=== PATIENT | female | born 1955 | race Caucasian/White ===

== ENCOUNTER 2018-08-11 13:26 | Inpatient (IN) ==
[2018-08-11] MEDS ORDERED: ONDANSETRON 4 MG/2 ML VIAL IV STA (14:06)
[2018-08-11] MEDS ORDERED: SODIUM CHLORIDE 0.9% 1,000 ML IV STA (14:06)
[2018-08-11 14:35] LABS: Basophils # 0.1 10*3/uL (0.0-0.2); Basophils % 0.9 % (0.0-0.8); Eosinophils # 0.1 10*3/uL (0.0-0.87); Eosinophils % 0.5 % (0.00-10.9); Hematocrit 50.8 VOL% (35.7-47.0); Hemoglobin 16.1 GM/DL (12.0-16.0); Immature Granulocytes % 1.6 %; Immature Granulocytes Absolute 0.18 #; Lymphocytes # 1.5 10*3/uL (1.4-4.0); Lymphocytes % 13.3 % (21.3-54.2); Mean Corpuscular HGB Conc 31.7 GM/DL (32-36); Mean Platelet Volume 9.9 FL (9.6-12.0); Monocytes % 4.9 % (1.7-12.7); Neutrophils % 78.8 % (38.7-73.9); Platelet Count 295 T/CUMM (130-400); Red Blood Count 4.98 MC/CUMM (3.8-5.5); Red Cell Distribution Width 16.2 % (9.3-17.3); White Blood Count 11.6 T/CUMM (4-12)
[2018-08-11 14:54] LABS: Alanine Aminotransferase 11 U/L (13-56); Albumin 3.5 G/DL (3.4-5.0); Alkaline Phosphatase 114 U/L (45-117); Amylase 13 U/L (25-115); Aspartate Amino Transferase 19 U/L (0-37); Blood Urea Nitrogen 9 MG/DL (7-18); Calcium 8.7 MG/DL (8.5-10.1); Glucose 104 MG/DL (74-106); Osmolality,Calculated 271.8 MOS/KG (273-304); Total Protein 7.5 G/DL (6.4-8.3)
[2018-08-11 15:49] LABS: Apearance,Urine Slightly Hazy (Clear); Bacteria,Urine Moderate /HPF (Few); Bilirubin,Urine Negative (Negative); Blood, Urine Large mg/dL (Negative); Glucose,Urine (UA) Negative (Negative); Ketones,Urine 5 mg/dL (Negative); Mucus,Urine Many /LPF (Occasional); Nitrite,Urine Positive (Negative); Protein,Urine 30 MG/DL; RBC,Urine 340 /HPF (0-4); Squamous Epithelial Cell,Urine Occasional /HPF (0-10); Urine Color Amber (Yellow); Urine Specific Gravity 1.023 (1.001-1.035); WBC,Urine 18 /HPF (0-6)
[2018-08-11] MEDS ORDERED: CIPROFLOXACIN INJ 400 MG in PREMIX 1 EACH IV STA (16:21)
[2018-08-11] MEDS ORDERED: ACETAMINOPHEN 325 MG TABLET PO PRN (18:27)
[2018-08-11] MEDS: ONDANSETRON 4 MG/2 ML VIAL IV PRN (19:21)
[2018-08-11] MEDS: MORPHINE 4 MG/1 ML VIAL IV PRN (19:22)
[2018-08-11] MEDS: SODIUM CHLORIDE 0.9% 1,000 ML IV SCH (19:24)
[2018-08-11] MEDS: ENOXAPARIN 40 MG/0.4 ML SYRINGE SUBCUT SCH (19:25)
[2018-08-11] MEDS: GABAPENTIN 300 MG CAPSULE PO SCH (22:09)
[2018-08-12] MEDS: MORPHINE 4 MG/1 ML VIAL IV PRN ×2 (01:06→14:04)
[2018-08-12 05:13] LABS: Basophils # 0.1 10*3/uL (0.0-0.2); Basophils % 1.1 % (0.0-0.8); Eosinophils # 0.1 10*3/uL (0.0-0.87); Eosinophils % 1.4 % (0.00-10.9); Hematocrit 45.8 VOL% (35.7-47.0); Hemoglobin 14.3 GM/DL (12.0-16.0); Immature Granulocytes % 1.8 %; Immature Granulocytes Absolute 0.17 #; Lymphocytes # 1.8 10*3/uL (1.4-4.0); Lymphocytes % 19.2 % (21.3-54.2); Mean Corpuscular HGB Conc 31.2 GM/DL (32-36); Mean Corpuscular Volume 104.3 FL (87-102); Monocytes % 4.7 % (1.7-12.7); Neutrophils % 71.8 % (38.7-73.9); Platelet Count 261 T/CUMM (130-400); Red Blood Count 4.39 MC/CUMM (3.8-5.5); Red Cell Distribution Width 16.3 % (9.3-17.3); White Blood Count 9.4 T/CUMM (4-12)
[2018-08-12 05:53] LABS: Calcium 8.3 MG/DL (8.5-10.1); Osmolality,Calculated 272.7 MOS/KG (273-304); Risk Ratio 3.93; VLDL CHOLESTEROL 26.8 MG/DL
[2018-08-12] MEDS: CIPROFLOXACIN INJ 400 MG in PREMIX 1 EACH IV SCH ×2 (06:17→17:12)
[2018-08-12] MEDS: SODIUM CHLORIDE 0.9% 1,000 ML IV SCH ×2 (06:18→07:50)
[2018-08-12] MEDS: GABAPENTIN 300 MG CAPSULE PO SCH ×3 (09:57→20:54)
[2018-08-12] MEDS: PANTOPRAZOLE 40 MG TABLET PO SCH (09:58)
[2018-08-12] MEDS: ZINC OXIDE PASTE 113 GM TUBE TOP SCH ×2 (17:08→20:54)
[2018-08-12] MEDS ORDERED: LEVOTHYROXINE 100 MCG VIAL IV ONE (17:14)
[2018-08-12] MEDS: ENOXAPARIN 40 MG/0.4 ML SYRINGE SUBCUT SCH (18:12)
[2018-08-13] MEDS: MORPHINE 4 MG/1 ML VIAL IV PRN ×2 (03:33→13:50)
[2018-08-13] MEDS: SODIUM CHLORIDE 0.9% 1,000 ML IV SCH ×4 (03:35→23:12)
[2018-08-13] MEDS: CIPROFLOXACIN INJ 400 MG in PREMIX 1 EACH IV SCH ×2 (05:23→17:54)
[2018-08-13 05:52] LABS: Basophils # 0.1 10*3/uL (0.0-0.2); Basophils % 0.8 % (0.0-0.8); Eosinophils # 0.1 10*3/uL (0.0-0.87); Eosinophils % 1.2 % (0.00-10.9); Hematocrit 45.3 VOL% (35.7-47.0); Immature Granulocytes % 1.8 %; Immature Granulocytes Absolute 0.15 #; Lymphocytes # 1.6 10*3/uL (1.4-4.0); Lymphocytes % 19.3 % (21.3-54.2); Mean Corpuscular HGB Conc 30.9 GM/DL (32-36); Mean Corpuscular Volume 105.1 FL (87-102); Mean Platelet Volume 10.1 FL (9.6-12.0); Monocytes % 4.7 % (1.7-12.7); Neutrophils % 72.2 % (38.7-73.9); Platelet Count 267 T/CUMM (130-400); Red Blood Count 4.31 MC/CUMM (3.8-5.5); Red Cell Distribution Width 16.2 % (9.3-17.3); White Blood Count 8.4 T/CUMM (4-12)
[2018-08-13 06:21] LABS: Calcium 8.4 MG/DL (8.5-10.1)
[2018-08-13] MEDS: LEVOTHYROXINE 200 MCG TABLET PO SCH (06:25)
[2018-08-13] MEDS ORDERED: LEVOTHYROXINE 150 MCG TABLET PO SCH (06:30)
[2018-08-13] MEDS: ZINC OXIDE PASTE 113 GM TUBE TOP SCH ×2 (09:08→21:25)
[2018-08-13] MEDS: PANTOPRAZOLE 40 MG TABLET PO SCH (09:08)
[2018-08-13] MEDS: GABAPENTIN 300 MG CAPSULE PO SCH ×3 (09:08→21:26)
[2018-08-13 10:57] LABS: ABG Base Excess 2.1 MMOL/L (-2.5-2.5); ABG HCO3 26.2 MMOL/L (20-26); ABG Oxygen Saturation 96.9 % (95-100); ABG PCO2 63.4 MM HG (35-48); ABG PH 7.295 (7.35-7.45); ABG PO2 88.3 MM HG (80-95); ABG TCO2 27.1 MMOL/L (23-27); Allen Test Positive
[2018-08-13] MEDS: ENOXAPARIN 40 MG/0.4 ML SYRINGE SUBCUT SCH (17:54)
[2018-08-14] MEDS: MORPHINE 4 MG/1 ML VIAL IV PRN ×3 (01:32→19:18)
[2018-08-14 04:48] LABS: Basophils # 0.1 10*3/uL (0.0-0.2); Basophils % 1.1 % (0.0-0.8); Eosinophils # 0.1 10*3/uL (0.0-0.87); Eosinophils % 1.1 % (0.00-10.9); Hematocrit 42.7 VOL% (35.7-47.0); Hemoglobin 12.9 GM/DL (12.0-16.0); Immature Granulocytes Absolute 0.17 #; Lymphocytes # 1.7 10*3/uL (1.4-4.0); Lymphocytes % 20.1 % (21.3-54.2); Mean Corpuscular HGB Conc 30.2 GM/DL (32-36); Mean Corpuscular Volume 106.8 FL (87-102); Mean Platelet Volume 9.7 FL (9.6-12.0); Monocytes % 5.6 % (1.7-12.7); Neutrophils % 70.1 % (38.7-73.9); Platelet Count 219 T/CUMM (130-400); Red Cell Distribution Width 16.1 % (9.3-17.3); White Blood Count 8.5 T/CUMM (4-12)
[2018-08-14 05:17] LABS: Calcium 8.1 MG/DL (8.5-10.1); Osmolality,Calculated 271.8 MOS/KG (273-304)
[2018-08-14] MEDS: LEVOTHYROXINE 200 MCG TABLET PO SCH (06:12)
[2018-08-14] MEDS: CIPROFLOXACIN INJ 400 MG in PREMIX 1 EACH IV SCH (06:14)
[2018-08-14] MEDS: PANTOPRAZOLE 40 MG TABLET PO SCH (09:00)
[2018-08-14] MEDS: GABAPENTIN 300 MG CAPSULE PO SCH ×3 (09:00→20:58)
[2018-08-14] MEDS: ZINC OXIDE PASTE 113 GM TUBE TOP SCH ×2 (09:00→20:56)
[2018-08-14] MEDS ORDERED: CYANOCOBALAMIN 1000 MCG/1 ML VIAL IM ONE (10:03)
[2018-08-14] MEDS: MONTELUKAST 10 MG TABLET PO SCH (11:30)
[2018-08-14] MEDS: FOLIC ACID 1 MG TABLET PO SCH ×2 (11:30→20:58)
[2018-08-14] MEDS: SODIUM CHLORIDE 0.9% 1,000 ML IV SCH (16:34)
[2018-08-14] MEDS: ENOXAPARIN 40 MG/0.4 ML SYRINGE SUBCUT SCH (18:19)
[2018-08-14] MEDS: CIPROFLOXACIN 250 MG TABLET PO SCH (20:58)
[2018-08-15] MEDS: SODIUM CHLORIDE 0.9% 1,000 ML IV SCH ×2 (02:41→17:43)
[2018-08-15] MEDS: LEVOTHYROXINE 200 MCG TABLET PO SCH (07:10)
[2018-08-15] MEDS ORDERED: CYANOCOBALAMIN 1000 MCG/1 ML VIAL IM SCH (09:00)
[2018-08-15] MEDS: MONTELUKAST 10 MG TABLET PO SCH (09:03)
[2018-08-15] MEDS: GABAPENTIN 300 MG CAPSULE PO SCH ×3 (09:03→20:52)
[2018-08-15] MEDS: FOLIC ACID 1 MG TABLET PO SCH ×2 (09:03→20:52)
[2018-08-15] MEDS: PANTOPRAZOLE 40 MG TABLET PO SCH (09:03)
[2018-08-15] MEDS: CIPROFLOXACIN 250 MG TABLET PO SCH ×2 (09:03→20:52)
[2018-08-15] MEDS: MORPHINE 4 MG/1 ML VIAL IV PRN ×3 (09:04→21:10)
[2018-08-15] MEDS: ZINC OXIDE PASTE 113 GM TUBE TOP SCH ×2 (10:00→20:52)
[2018-08-15] MEDS: ENOXAPARIN 40 MG/0.4 ML SYRINGE SUBCUT SCH (18:43)
[2018-08-16] MEDS: MORPHINE 4 MG/1 ML VIAL IV PRN ×5 (03:06→20:45)
[2018-08-16] MEDS: LEVOTHYROXINE 200 MCG TABLET PO SCH (06:37)
[2018-08-16] MEDS: SODIUM CHLORIDE 0.9% 1,000 ML IV SCH ×2 (06:38→20:48)
[2018-08-16] MEDS: GABAPENTIN 300 MG CAPSULE PO SCH ×3 (08:45→20:45)
[2018-08-16] MEDS: PANTOPRAZOLE 40 MG TABLET PO SCH (08:45)
[2018-08-16] MEDS: CIPROFLOXACIN 250 MG TABLET PO SCH ×2 (08:45→20:45)
[2018-08-16] MEDS: ZINC OXIDE PASTE 113 GM TUBE TOP SCH ×2 (08:45→20:48)
[2018-08-16] MEDS: FOLIC ACID 1 MG TABLET PO SCH ×2 (08:45→20:45)
[2018-08-16] MEDS: MONTELUKAST 10 MG TABLET PO SCH (08:45)
[2018-08-16] MEDS: ENOXAPARIN 40 MG/0.4 ML SYRINGE SUBCUT SCH (18:21)
[2018-08-17] MEDS: MORPHINE 4 MG/1 ML VIAL IV PRN ×3 (05:12→20:27)
[2018-08-17] MEDS: LEVOTHYROXINE 200 MCG TABLET PO SCH (06:03)
[2018-08-17] MEDS: SODIUM CHLORIDE 0.9% 1,000 ML IV SCH ×2 (07:55→22:20)
[2018-08-17] MEDS: PANTOPRAZOLE 40 MG TABLET PO SCH (08:52)
[2018-08-17] MEDS: FOLIC ACID 1 MG TABLET PO SCH ×2 (08:52→20:27)
[2018-08-17] MEDS: GABAPENTIN 300 MG CAPSULE PO SCH ×3 (08:52→20:27)
[2018-08-17] MEDS: CIPROFLOXACIN 250 MG TABLET PO SCH ×2 (08:52→20:27)
[2018-08-17] MEDS: MONTELUKAST 10 MG TABLET PO SCH (08:52)
[2018-08-17] MEDS: ZINC OXIDE PASTE 113 GM TUBE TOP SCH ×2 (09:17→22:29)
[2018-08-17] MEDS: ENOXAPARIN 40 MG/0.4 ML SYRINGE SUBCUT SCH (18:58)
[2018-08-18] MEDS: MORPHINE 4 MG/1 ML VIAL IV PRN ×4 (04:34→20:28)
[2018-08-18] MEDS: LEVOTHYROXINE 200 MCG TABLET PO SCH (06:20)
[2018-08-18] MEDS: FOLIC ACID 1 MG TABLET PO SCH ×2 (08:25→20:27)
[2018-08-18] MEDS: CIPROFLOXACIN 250 MG TABLET PO SCH ×2 (08:26→20:27)
[2018-08-18] MEDS: MONTELUKAST 10 MG TABLET PO SCH (08:26)
[2018-08-18] MEDS: PANTOPRAZOLE 40 MG TABLET PO SCH (08:26)
[2018-08-18] MEDS: GABAPENTIN 300 MG CAPSULE PO SCH ×3 (08:26→20:27)
[2018-08-18] MEDS: ZINC OXIDE PASTE 113 GM TUBE TOP SCH ×2 (08:27→20:27)
[2018-08-18] MEDS: SODIUM CHLORIDE 0.9% 1,000 ML IV SCH (10:52)
[2018-08-18] MEDS: ENOXAPARIN 40 MG/0.4 ML SYRINGE SUBCUT SCH (18:09)
[2018-08-18] MEDS: NYSTATIN POWDER 15 GM BOTTLE TOP SCH (22:44)
[2018-08-19] MEDS: SODIUM CHLORIDE 0.9% 1,000 ML IV SCH (00:27)
[2018-08-19] MEDS: MORPHINE 4 MG/1 ML VIAL IV PRN (00:36)
[2018-08-19] MEDS ORDERED: HYDROmorphone 2 MG/1 ML VIAL IV ONE (03:14)
[2018-08-19] MEDS: HYDROmorphone 2 MG/1 ML VIAL IV PRN ×3 (06:38→21:38)
[2018-08-19] MEDS: LEVOTHYROXINE 200 MCG TABLET PO SCH (06:41)
[2018-08-19] MEDS: FOLIC ACID 1 MG TABLET PO SCH ×2 (08:08→21:29)
[2018-08-19] MEDS: PANTOPRAZOLE 40 MG TABLET PO SCH (08:09)
[2018-08-19] MEDS: MONTELUKAST 10 MG TABLET PO SCH (08:09)
[2018-08-19] MEDS: GABAPENTIN 300 MG CAPSULE PO SCH ×3 (08:09→21:29)
[2018-08-19] MEDS: CIPROFLOXACIN 250 MG TABLET PO SCH ×2 (08:09→21:29)
[2018-08-19] MEDS: ZINC OXIDE PASTE 113 GM TUBE TOP SCH ×2 (08:10→21:29)
[2018-08-19] MEDS: NYSTATIN POWDER 15 GM BOTTLE TOP SCH ×2 (08:11→21:29)
[2018-08-19] MEDS: ONDANSETRON 4 MG/2 ML VIAL IV PRN (09:44)
[2018-08-19] MEDS ORDERED: PROMETHAZINE 25 MG/1 ML VIAL IM PRN (10:48)
[2018-08-19] MEDS: CYANOCOBALAMIN 500 MCG TABLET PO SCH (12:53)
[2018-08-19] MEDS: ENOXAPARIN 40 MG/0.4 ML SYRINGE SUBCUT SCH (17:38)
[2018-08-20] MEDS: HYDROmorphone 2 MG/1 ML VIAL IV PRN (02:20)
[2018-08-20 04:53] LABS: Basophils # 0.1 10*3/uL (0.0-0.2); Basophils % 0.9 % (0.0-0.8); Eosinophils # 0.1 10*3/uL (0.0-0.87); Eosinophils % 1.4 % (0.00-10.9); Hemoglobin 12.6 GM/DL (12.0-16.0); Immature Granulocytes % 1.5 %; Immature Granulocytes Absolute 0.12 #; Lymphocytes # 1.2 10*3/uL (1.4-4.0); Lymphocytes % 15.5 % (21.3-54.2); Mean Corpuscular HGB Conc 30.7 GM/DL (32-36); Mean Corpuscular Volume 105.1 FL (87-102); Mean Platelet Volume 9.7 FL (9.6-12.0); Neutrophils % 73.7 % (38.7-73.9); Platelet Count 199 T/CUMM (130-400); Red Cell Distribution Width 15.9 % (9.3-17.3); White Blood Count 7.8 T/CUMM (4-12)
[2018-08-20 05:13] LABS: Calcium 8.3 MG/DL (8.5-10.1); Osmolality,Calculated 272.7 MOS/KG (273-304)
[2018-08-20] MEDS: LEVOTHYROXINE 200 MCG TABLET PO SCH (07:32)
[2018-08-20] MEDS: MONTELUKAST 10 MG TABLET PO SCH (09:27)
[2018-08-20] MEDS: CIPROFLOXACIN 250 MG TABLET PO SCH ×2 (09:27→21:48)
[2018-08-20] MEDS: PANTOPRAZOLE 40 MG TABLET PO SCH (09:27)
[2018-08-20] MEDS: FOLIC ACID 1 MG TABLET PO SCH ×2 (09:28→21:48)
[2018-08-20] MEDS: GABAPENTIN 300 MG CAPSULE PO SCH ×3 (09:28→21:48)
[2018-08-20] MEDS: LIDOCAINE 5% PATCH TRANSDERM SCH (09:31)
[2018-08-20] MEDS: CYANOCOBALAMIN 500 MCG TABLET PO SCH (10:00)
[2018-08-20] MEDS: ZINC OXIDE PASTE 113 GM TUBE TOP SCH ×2 (10:00→21:48)
[2018-08-20] MEDS: NYSTATIN POWDER 15 GM BOTTLE TOP SCH ×2 (10:00→21:48)
[2018-08-20] MEDS: LIOTHYRONINE 25 MCG TABLET PO SCH (16:00)
[2018-08-20] MEDS: ENOXAPARIN 40 MG/0.4 ML SYRINGE SUBCUT SCH (18:06)
[2018-08-21 05:13] LABS: Basophils # 0.1 10*3/uL (0.0-0.2); Eosinophils # 0.1 10*3/uL (0.0-0.87); Eosinophils % 1.4 % (0.00-10.9); Hematocrit 39.8 VOL% (35.7-47.0); Hemoglobin 12.3 GM/DL (12.0-16.0); Immature Granulocytes % 1.3 %; Immature Granulocytes Absolute 0.09 #; Lymphocytes # 1.3 10*3/uL (1.4-4.0); Lymphocytes % 18.1 % (21.3-54.2); Mean Corpuscular HGB Conc 30.9 GM/DL (32-36); Mean Corpuscular Volume 104.5 FL (87-102); Mean Platelet Volume 10.3 FL (9.6-12.0); Neutrophils % 71.2 % (38.7-73.9); Platelet Count 188 T/CUMM (130-400); Red Blood Count 3.81 MC/CUMM (3.8-5.5); Red Cell Distribution Width 15.8 % (9.3-17.3)
[2018-08-21 05:33] LABS: Calcium 8.4 MG/DL (8.5-10.1); Osmolality,Calculated 275.5 MOS/KG (273-304)
[2018-08-21] MEDS: LEVOTHYROXINE 200 MCG TABLET PO SCH (06:32)
[2018-08-21] MEDS: LIOTHYRONINE 25 MCG TABLET PO SCH (06:32)
[2018-08-21] MEDS: LIDOCAINE 5% PATCH TRANSDERM SCH (06:32)
[2018-08-21] MEDS: FOLIC ACID 1 MG TABLET PO SCH (10:50)
[2018-08-21] MEDS: GABAPENTIN 300 MG CAPSULE PO SCH (10:50)
[2018-08-21] MEDS: PANTOPRAZOLE 40 MG TABLET PO SCH (10:50)
[2018-08-21] MEDS: CYANOCOBALAMIN 500 MCG TABLET PO SCH (10:51)
[2018-08-21] MEDS: CIPROFLOXACIN 250 MG TABLET PO SCH (10:51)
[2018-08-21] MEDS: MONTELUKAST 10 MG TABLET PO SCH (10:52)
[2018-08-21] MEDS: ZINC OXIDE PASTE 113 GM TUBE TOP SCH (14:30)
[2018-08-21] MEDS: NYSTATIN POWDER 15 GM BOTTLE TOP SCH (14:30)
[2018-08-21] MEDS ORDERED: oxyCODONE/ACETAMINOPHEN 5-325 MG TABLET PO PRN (14:35)
[2018-08-21 19:18] VITALS: BP 115/74
== END 2018-08-21 16:54 | disposition swing bed (61) | DRG 394 ==
LOC: EDUNIT# → EDBD → N.ED 13:26 → N.EDINP 18:22 → SUATTDRO 18:26 → N.3E 19:39
PROVIDERS: ADMIT Internal Medicine; ATTEND Internal Medicine

== ENCOUNTER 2018-10-01 07:24 | Inpatient (IN) ==
[2018-10-01 09:19] LABS: Basophils # 0.1 10*3/uL (0.0-0.2); Basophils % 0.5 % (0.0-0.8); Eosinophils # 0.1 10*3/uL (0.0-0.87); Eosinophils % 1.2 % (0.00-10.9); Hematocrit 45.3 VOL% (35.7-47.0); Hemoglobin 14.1 GM/DL (12.0-16.0); Immature Granulocytes % 1.6 %; Immature Granulocytes Absolute 0.19 #; Lymphocytes # 1.3 10*3/uL (1.4-4.0); Lymphocytes % 10.6 % (21.3-54.2); Mean Corpuscular HGB Conc 31.1 GM/DL (32-36); Mean Corpuscular Volume 96.4 FL (87-102); Mean Platelet Volume 9.6 FL (9.6-12.0); Monocytes % 4.3 % (1.7-12.7); Neutrophils % 81.8 % (38.7-73.9); Platelet Count 305 T/CUMM (130-400); Red Cell Distribution Width 13.8 % (9.3-17.3); White Blood Count 11.9 T/CUMM (4-12)
[2018-10-01 09:38] LABS: Albumin 2.3 G/DL (3.4-5.0); Bilirubin,Total 0.6 MG/DL (0.2-1.0); Calcium 9.2 MG/DL (8.5-10.1); Osmolality,Calculated 271.8 MOS/KG (273-304); Total Protein 6.7 G/DL (6.4-8.3)
[2018-10-01] MEDS ORDERED: KETOROLAC 10 MG TABLET PO STA (09:59)
[2018-10-01] MEDS ORDERED: ONDANSETRON 4 MG/2 ML VIAL IV PRN (16:38)
[2018-10-01] MEDS: ACETAMINOPHEN 325 MG TABLET PO PRN ×2 (17:13→22:14)
[2018-10-01] MEDS ORDERED: ENOXAPARIN 40 MG/0.4 ML SYRINGE SUBCUT SCH (21:00)
[2018-10-02] MEDS: MORPHINE 4 MG/1 ML VIAL IV PRN ×4 (00:06→16:36)
[2018-10-02] MEDS: ACETAMINOPHEN 325 MG TABLET PO PRN ×2 (04:18→15:03)
[2018-10-02 05:43] LABS: Basophils # 0.1 10*3/uL (0.0-0.2); Basophils % 0.7 % (0.0-0.8); Eosinophils # 0.3 10*3/uL (0.0-0.87); Eosinophils % 2.5 % (0.00-10.9); Hematocrit 39.9 VOL% (35.7-47.0); Hemoglobin 12.8 GM/DL (12.0-16.0); Immature Granulocytes % 1.5 %; Immature Granulocytes Absolute 0.15 #; Lymphocytes # 1.8 10*3/uL (1.4-4.0); Mean Corpuscular HGB Conc 32.1 GM/DL (32-36); Mean Corpuscular Volume 94.3 FL (87-102); Mean Platelet Volume 10.2 FL (9.6-12.0); Monocytes % 5.1 % (1.7-12.7); Neutrophils % 72.2 % (38.7-73.9); Platelet Count 294 T/CUMM (130-400); Red Blood Count 4.23 MC/CUMM (3.8-5.5); Red Cell Distribution Width 13.8 % (9.3-17.3); White Blood Count 9.9 T/CUMM (4-12)
[2018-10-02 06:03] LABS: Calcium 8.6 MG/DL (8.5-10.1); Osmolality,Calculated 272.7 MOS/KG (273-304); Risk Ratio 3.29; Thyroid Stimulating Hormone 8.02 uIU/ml (0.358-3.74); Total Protein 6.1 G/DL (6.4-8.3); VLDL CHOLESTEROL 23.2 MG/DL
[2018-10-02] MEDS: PANTOPRAZOLE 40 MG TABLET PO SCH (08:04)
[2018-10-02] MEDS: POTASSIUM CHLORIDE 20 MEQ TABLET PO PRN ×3 (08:05→12:10)
[2018-10-02] MEDS: ENOXAPARIN 40 MG/0.4 ML SYRINGE SUBCUT SCH ×2 (10:03→22:22)
[2018-10-02] MEDS: fentaNYL 100 MCG/HR PATCH TRANSDERM SCH (19:23)
[2018-10-03] MEDS: GABAPENTIN 300 MG CAPSULE PO SCH ×4 (00:14→17:17)
[2018-10-03] MEDS: LEVOTHYROXINE 200 MCG TABLET PO SCH (05:59)
[2018-10-03 06:46] LABS: Basophils # 0.1 10*3/uL (0.0-0.2); Basophils % 0.9 % (0.0-0.8); Eosinophils # 0.3 10*3/uL (0.0-0.87); Eosinophils % 2.7 % (0.00-10.9); Hematocrit 40.9 VOL% (35.7-47.0); Immature Granulocytes % 2.1 %; Immature Granulocytes Absolute 0.21 #; Lymphocytes % 19.6 % (21.3-54.2); Mean Corpuscular HGB Conc 31.8 GM/DL (32-36); Mean Platelet Volume 10.2 FL (9.6-12.0); Monocytes % 5.4 % (1.7-12.7); Neutrophils % 69.3 % (38.7-73.9); Platelet Count 306 T/CUMM (130-400); Red Blood Count 4.35 MC/CUMM (3.8-5.5); Red Cell Distribution Width 13.7 % (9.3-17.3)
[2018-10-03 07:18] LABS: Albumin 2.1 G/DL (3.4-5.0); Bilirubin,Total 1.1 MG/DL (0.2-1.0); Calcium 8.5 MG/DL (8.5-10.1); Osmolality,Calculated 269.8 MOS/KG (273-304); Total Protein 5.8 G/DL (6.4-8.3)
[2018-10-03] MEDS: POTASSIUM CHLORIDE 20 MEQ TABLET PO PRN ×3 (07:38→17:17)
[2018-10-03] MEDS: ENOXAPARIN 40 MG/0.4 ML SYRINGE SUBCUT SCH ×2 (09:37→22:10)
[2018-10-03] MEDS: PANTOPRAZOLE 40 MG TABLET PO SCH (09:37)
[2018-10-03] MEDS: HYDROmorphone 2 MG/1 ML VIAL IV PRN ×3 (09:38→22:10)
[2018-10-04] MEDS: GABAPENTIN 300 MG CAPSULE PO SCH ×4 (00:49→17:31)
[2018-10-04] MEDS: HYDROmorphone 2 MG/1 ML VIAL IV PRN ×5 (02:36→18:13)
[2018-10-04] MEDS: LEVOTHYROXINE 200 MCG TABLET PO SCH (06:26)
[2018-10-04 06:32] LABS: Basophils # 0.1 10*3/uL (0.0-0.2); Basophils % 1.1 % (0.0-0.8); Eosinophils # 0.3 10*3/uL (0.0-0.87); Eosinophils % 2.8 % (0.00-10.9); Hematocrit 42.3 VOL% (35.7-47.0); Hemoglobin 13.2 GM/DL (12.0-16.0); Lymphocytes # 2.2 10*3/uL (1.4-4.0); Lymphocytes % 22.7 % (21.3-54.2); Mean Corpuscular HGB Conc 31.2 GM/DL (32-36); Mean Corpuscular Volume 95.7 FL (87-102); Mean Platelet Volume 9.7 FL (9.6-12.0); Monocytes % 5.2 % (1.7-12.7); Neutrophils % 66.2 % (38.7-73.9); Platelet Count 303 T/CUMM (130-400); Red Blood Count 4.42 MC/CUMM (3.8-5.5); Red Cell Distribution Width 14.1 % (9.3-17.3); White Blood Count 9.8 T/CUMM (4-12)
[2018-10-04 06:51] LABS: Albumin 2.4 G/DL (3.4-5.0); Bilirubin,Total 0.9 MG/DL (0.2-1.0); Calcium 8.7 MG/DL (8.5-10.1); Osmolality,Calculated 268.1 MOS/KG (273-304)
[2018-10-04] MEDS: ENOXAPARIN 40 MG/0.4 ML SYRINGE SUBCUT SCH ×3 (08:07→22:26)
[2018-10-04] MEDS: PANTOPRAZOLE 40 MG TABLET PO SCH (08:07)
[2018-10-05] MEDS: GABAPENTIN 300 MG CAPSULE PO SCH ×5 (00:45→23:01)
[2018-10-05] MEDS: HYDROmorphone 2 MG/1 ML VIAL IV PRN ×4 (04:39→20:33)
[2018-10-05] MEDS: LEVOTHYROXINE 200 MCG TABLET PO SCH (06:09)
[2018-10-05] MEDS: ENOXAPARIN 40 MG/0.4 ML SYRINGE SUBCUT SCH ×3 (08:23→23:02)
[2018-10-05] MEDS: PANTOPRAZOLE 40 MG TABLET PO SCH (08:23)
[2018-10-05] MEDS: fentaNYL 100 MCG/HR PATCH TRANSDERM SCH (08:23)
[2018-10-06] MEDS: HYDROmorphone 2 MG/1 ML VIAL IV PRN ×6 (00:55→23:45)
[2018-10-06] MEDS: GABAPENTIN 300 MG CAPSULE PO SCH ×4 (05:55→23:46)
[2018-10-06] MEDS: LEVOTHYROXINE 200 MCG TABLET PO SCH (05:55)
[2018-10-06] MEDS: PANTOPRAZOLE 40 MG TABLET PO SCH (08:13)
[2018-10-06] MEDS: ENOXAPARIN 40 MG/0.4 ML SYRINGE SUBCUT SCH ×2 (10:07→23:46)
[2018-10-07] MEDS: HYDROmorphone 2 MG/1 ML VIAL IV PRN ×7 (05:31→23:16)
[2018-10-07] MEDS: GABAPENTIN 300 MG CAPSULE PO SCH ×3 (05:32→18:15)
[2018-10-07] MEDS: LEVOTHYROXINE 200 MCG TABLET PO SCH (05:32)
[2018-10-07] MEDS: PANTOPRAZOLE 40 MG TABLET PO SCH (09:03)
[2018-10-07] MEDS: ENOXAPARIN 40 MG/0.4 ML SYRINGE SUBCUT SCH ×2 (09:42→23:17)
[2018-10-07] MEDS: NYSTATIN POWDER 15 GM BOTTLE TOP SCH (23:59)
[2018-10-08] MEDS: GABAPENTIN 300 MG CAPSULE PO SCH ×4 (01:37→17:18)
[2018-10-08] MEDS: HYDROmorphone 2 MG/1 ML VIAL IV PRN ×9 (01:37→22:16)
[2018-10-08] MEDS: LEVOTHYROXINE 200 MCG TABLET PO SCH (05:38)
[2018-10-08 06:10] LABS: Apearance,Urine CLOUDY (Clear); Bilirubin,Urine Negative (Negative); Blood, Urine Small mg/dL (Negative); Glucose,Urine (UA) Negative (Negative); Ketones,Urine Negative (Negative); Mucus,Urine Occasional /LPF (Occasional); Nitrite,Urine Negative (Negative); Protein,Urine Negative; RBC,Urine 7 /HPF (0-4); Squamous Epithelial Cell,Urine Many /HPF (0-10); Urine Color Amber (Yellow); Urine Specific Gravity 1.019 (1.001-1.035); WBC,Urine 15 /HPF (0-6)
[2018-10-08] MEDS: PANTOPRAZOLE 40 MG TABLET PO SCH (08:43)
[2018-10-08] MEDS: fentaNYL 100 MCG/HR PATCH TRANSDERM SCH (08:43)
[2018-10-08] MEDS: ENOXAPARIN 40 MG/0.4 ML SYRINGE SUBCUT SCH ×2 (11:11→22:17)
[2018-10-08] MEDS: NYSTATIN POWDER 15 GM BOTTLE TOP SCH ×3 (11:12→20:12)
[2018-10-08] MEDS ORDERED: TUBERCULIN SKIN TEST 0.1 ML SYRINGE INTRADERM ONE (11:26)
[2018-10-08 11:47] LABS: Basophils # 0.1 10*3/uL (0.0-0.2); Basophils % 0.8 % (0.0-0.8); Eosinophils # 0.3 10*3/uL (0.0-0.87); Eosinophils % 2.4 % (0.00-10.9); Hematocrit 40.1 VOL% (35.7-47.0); Hemoglobin 12.5 GM/DL (12.0-16.0); Immature Granulocytes % 1.8 %; Lymphocytes # 1.6 10*3/uL (1.4-4.0); Lymphocytes % 14.2 % (21.3-54.2); Mean Corpuscular HGB Conc 31.2 GM/DL (32-36); Mean Corpuscular Volume 95.5 FL (87-102); Mean Platelet Volume 10.3 FL (9.6-12.0); Monocytes % 4.3 % (1.7-12.7); Neutrophils % 76.5 % (38.7-73.9); Platelet Count 234 T/CUMM (130-400); Red Cell Distribution Width 14.6 % (9.3-17.3); White Blood Count 10.9 T/CUMM (4-12)
[2018-10-08 12:18] LABS: Alanine Aminotransferase < 9 U/L (13-56); Albumin 2.4 G/DL (3.4-5.0); Alkaline Phosphatase 78 U/L (45-117); Aspartate Amino Transferase 8 U/L (0-37); Blood Urea Nitrogen 14 MG/DL (7-18); Calcium 8.2 MG/DL (8.5-10.1); Glucose 103 MG/DL (74-106); Osmolality,Calculated 268.2 MOS/KG (273-304)
[2018-10-08] MEDS: CYANOCOBALAMIN 1000 MCG/1 ML VIAL IM SCH (18:38)
[2018-10-09] MEDS: HYDROmorphone 2 MG/1 ML VIAL IV PRN ×10 (00:28→23:37)
[2018-10-09] MEDS: GABAPENTIN 300 MG CAPSULE PO SCH ×5 (00:28→23:37)
[2018-10-09 05:42] LABS: Basophils # 0.1 10*3/uL (0.0-0.2); Basophils % 0.6 % (0.0-0.8); Eosinophils # 0.3 10*3/uL (0.0-0.87); Eosinophils % 2.2 % (0.00-10.9); Hematocrit 38.8 VOL% (35.7-47.0); Immature Granulocytes % 1.4 %; Immature Granulocytes Absolute 0.16 #; Lymphocytes % 17.5 % (21.3-54.2); Mean Corpuscular HGB Conc 30.9 GM/DL (32-36); Mean Corpuscular Volume 95.3 FL (87-102); Mean Platelet Volume 10.4 FL (9.6-12.0); Monocytes % 5.8 % (1.7-12.7); Neutrophils % 72.5 % (38.7-73.9); Platelet Count 224 T/CUMM (130-400); Red Blood Count 4.07 MC/CUMM (3.8-5.5); Red Cell Distribution Width 14.4 % (9.3-17.3); White Blood Count 11.1 T/CUMM (4-12)
[2018-10-09] MEDS: LEVOTHYROXINE 200 MCG TABLET PO SCH (06:21)
[2018-10-09] MEDS: PANTOPRAZOLE 40 MG TABLET PO SCH (08:43)
[2018-10-09] MEDS: CYANOCOBALAMIN 1000 MCG/1 ML VIAL IM SCH (08:43)
[2018-10-09] MEDS: NYSTATIN POWDER 15 GM BOTTLE TOP SCH ×3 (08:44→21:58)
[2018-10-09] MEDS: ENOXAPARIN 40 MG/0.4 ML SYRINGE SUBCUT SCH ×2 (10:50→21:52)
[2018-10-10] MEDS: HYDROmorphone 2 MG/1 ML VIAL IV PRN ×2 (03:21→06:01)
[2018-10-10] MEDS: LEVOTHYROXINE 200 MCG TABLET PO SCH (06:00)
[2018-10-10] MEDS: GABAPENTIN 300 MG CAPSULE PO SCH (06:00)
[2018-10-10 08:10] VITALS: BP 128/67
[2018-10-10] MEDS: CYANOCOBALAMIN 1000 MCG/1 ML VIAL IM SCH (09:10)
[2018-10-10] MEDS: PANTOPRAZOLE 40 MG TABLET PO SCH (09:10)
[2018-10-10] MEDS: NYSTATIN POWDER 15 GM BOTTLE TOP SCH (09:10)
[2018-10-10] MEDS ORDERED: oxyCODONE/ACETAMINOPHEN 5-325 MG TABLET PO ONE (09:29)
[2018-10-10] MEDS: ENOXAPARIN 40 MG/0.4 ML SYRINGE SUBCUT SCH (09:36)
== END 2018-10-10 10:15 | DRG 552 ==
LOC: EDBD → EDUNIT# → N.ED 07:24 → SUATTDRO 10:46 → N.EDINP 10:46 → N.5E 14:19
PROVIDERS: ADMIT Hospitalist; ATTEND Internal Medicine

== ENCOUNTER 2019-10-02 09:27 | Inpatient (IN) ==
[2019-10-02] MEDS ORDERED: LEVOFLOXACIN INJ 500 MG in PREMIX 1 EACH IV STA (09:40)
[2019-10-02 10:45] LABS: INR 1.2; Partial Thromboplastin Time 34.8 SECS (23.9-33.8)
[2019-10-02 10:58] LABS: Albumin 3.2 G/DL (3.4-5.0); Calcium 8.8 MG/DL (8.5-10.1); Osmolality,Calculated 270.1 MOS/KG (273-304)
[2019-10-02 11:04] LABS: Basophils # 0.1 10*3/uL (0.0-0.2); Basophils % 0.6 % (0.0-0.8); Eosinophils % 0.3 % (0.00-10.9); Hematocrit 54.5 VOL% (35.7-47.0); Hemoglobin 16.7 GM/DL (12.0-16.0); Immature Granulocytes % 1.5 %; Immature Granulocytes Absolute 0.23 #; Lymphocytes # 1.2 10*3/uL (1.4-4.0); Lymphocytes % 7.7 % (21.3-54.2); Mean Corpuscular HGB Conc 30.6 GM/DL (32-36); Mean Corpuscular Volume 94.3 FL (87-102); Mean Platelet Volume 11.8 FL (9.6-12.0); Monocytes % 4.6 % (1.7-12.7); Neutrophils % 85.3 % (38.7-73.9); Platelet Count 284 T/CUMM (130-400); Red Blood Count 5.78 MC/CUMM (3.8-5.5); Red Cell Distribution Width 17.2 % (9.3-17.3); White Blood Count 15.4 T/CUMM (4-12)
[2019-10-02] MEDS ORDERED: ACETAMINOPHEN 325 MG TABLET PO PRN (14:58)
[2019-10-02] MEDS ORDERED: DEXTROSE 50% 25 GM/50 ML VIAL IV PRN (14:58)
[2019-10-02] MEDS ORDERED: ONDANSETRON 4 MG/2 ML VIAL IV PRN (14:58)
[2019-10-02] MEDS ORDERED: GLUCAGON 1 MG VIAL IM PRN (14:58)
[2019-10-02] MEDS: INSULIN LISPRO 100 UNIT/ML SUBCUT SCH ×2 (19:00→21:24)
[2019-10-02] MEDS ORDERED: ONDANSETRON 4 MG TABLET PO PRN (19:27)
[2019-10-02] MEDS ORDERED: FUROSEMIDE 40 MG/4 ML VIAL IV ONE (19:30)
[2019-10-02] MEDS: SODIUM CHLORIDE 0.9% 1,000 ML IV SCH (19:53)
[2019-10-02] MEDS: BUDESONIDE 0.25 MG/2 ML NEB RESP TX SCH (20:15)
[2019-10-02] MEDS ORDERED: DOCUSATE SODIUM 100 MG CAPSULE PO SCH (21:00)
[2019-10-02] MEDS: MELATONIN 3 MG TABLET PO SCH (21:22)
[2019-10-02] MEDS: METOPROLOL TARTRATE 25 MG TABLET PO SCH (21:22)
[2019-10-02] MEDS: DOCUSATE SODIUM 100 MG CAPSULE PO SCH (21:22)
[2019-10-02] MEDS: GABAPENTIN 300 MG CAPSULE PO SCH (21:22)
[2019-10-02] MEDS: LACTULOSE 20 GM/30 ML UDCUP PO SCH (21:23)
[2019-10-02] MEDS: methylPREDNISolone SOD SUC 40 MG/1 ML VIAL IV SCH (21:23)
[2019-10-02] MEDS: POTASSIUM CHLORIDE 20 MEQ/15 ML UDCUP PO SCH (21:24)
[2019-10-02] MEDS: KETOROLAC 15 MG/1 ML VIAL IV SCH (21:24)
[2019-10-02] MEDS: FLUTICASONE 50 MCG NASAL SPRAY 16 GM BOTTLE BOTH NARES SCH (22:04)
[2019-10-02] MEDS ORDERED: METOPROLOL TARTRATE 25 MG TABLET PO ONE (23:11)
[2019-10-03] MEDS: ALBUTEROL/IPRATROPIUM 3 ML NEB RESP TX SCH ×4 (00:47→20:08)
[2019-10-03] MEDS: methylPREDNISolone SOD SUC 40 MG/1 ML VIAL IV SCH ×3 (06:19→20:43)
[2019-10-03] MEDS: LEVOTHYROXINE 200 MCG TABLET PO SCH (06:19)
[2019-10-03] MEDS: KETOROLAC 15 MG/1 ML VIAL IV SCH ×3 (06:19→22:05)
[2019-10-03 06:29] LABS: Basophils # 0.1 10*3/uL (0.0-0.2); Basophils % 0.6 % (0.0-0.8); Eosinophils % 0.2 % (0.00-10.9); Hematocrit 47.8 VOL% (35.7-47.0); Hemoglobin 14.7 GM/DL (12.0-16.0); Immature Granulocytes Absolute 0.13 #; Lymphocytes # 1.2 10*3/uL (1.4-4.0); Lymphocytes % 9.9 % (21.3-54.2); Mean Corpuscular HGB Conc 30.8 GM/DL (32-36); Mean Corpuscular Volume 94.1 FL (87-102); Mean Platelet Volume 11.5 FL (9.6-12.0); Monocytes % 5.3 % (1.7-12.7); Platelet Count 267 T/CUMM (130-400); Red Blood Count 5.08 MC/CUMM (3.8-5.5); Red Cell Distribution Width 15.9 % (9.3-17.3); White Blood Count 12.5 T/CUMM (4-12)
[2019-10-03 06:56] LABS: Albumin 2.7 G/DL (3.4-5.0); Bilirubin,Total 0.8 MG/DL (0.2-1.0); Calcium 8.7 MG/DL (8.5-10.1); Osmolality,Calculated 274.8 MOS/KG (273-304); Total Protein 6.4 G/DL (6.4-8.3)
[2019-10-03] MEDS: BUDESONIDE 0.25 MG/2 ML NEB RESP TX SCH ×2 (07:39→20:08)
[2019-10-03] MEDS: INSULIN LISPRO 100 UNIT/ML SUBCUT SCH ×4 (08:55→21:39)
[2019-10-03] MEDS: POTASSIUM CHLORIDE 20 MEQ/15 ML UDCUP PO SCH ×3 (08:55→21:48)
[2019-10-03] MEDS: LACTULOSE 20 GM/30 ML UDCUP PO SCH ×2 (08:56→21:48)
[2019-10-03] MEDS: PANTOPRAZOLE 40 MG TABLET PO SCH (08:57)
[2019-10-03] MEDS: GABAPENTIN 300 MG CAPSULE PO SCH ×4 (08:57→21:46)
[2019-10-03] MEDS: METOPROLOL TARTRATE 25 MG TABLET PO SCH ×2 (08:57→21:45)
[2019-10-03] MEDS: DOCUSATE SODIUM 100 MG CAPSULE PO SCH ×2 (08:57→21:46)
[2019-10-03] MEDS: FAMOTIDINE 20 MG TABLET PO SCH (08:57)
[2019-10-03] MEDS: fentaNYL 25 MCG/HR PATCH TRANSDERM SCH (08:58)
[2019-10-03] MEDS: LIDOCAINE 5% PATCH TRANSDERM SCH (08:59)
[2019-10-03] MEDS: LEVOFLOXACIN INJ 500 MG in PREMIX 1 EACH IV SCH (09:00)
[2019-10-03] MEDS ORDERED: PANTOPRAZOLE 40 MG TABLET PO SCH (09:00)
[2019-10-03] MEDS: FUROSEMIDE 40 MG/4 ML VIAL IV SCH (09:02)
[2019-10-03] MEDS: SODIUM CHLORIDE 0.9% 1,000 ML IV SCH (10:59)
[2019-10-03] MEDS: oxyCODONE/ACETAMINOPHEN 5-325 MG TABLET PO PRN ×2 (11:00→18:23)
[2019-10-03] MEDS: diphenhydrAMINE 25 MG/10 ML UDCUP PO SCH (12:01)
[2019-10-03 12:52] LABS: Apearance,Urine Slightly Hazy (Clear); Bacteria,Urine Moderate /HPF (Few); Bilirubin,Urine Negative (Negative); Blood, Urine Large mg/dL (Negative); Glucose,Urine (UA) Negative (Negative); Hyaline Casts,Urine 21 /LPF (0-3); Ketones,Urine Negative (Negative); Mucus,Urine Many /LPF (Occasional); Nitrite,Urine Negative (Negative); Protein,Urine Negative; RBC,Urine 180 /HPF (0-4); Squamous Epithelial Cell,Urine Occasional /HPF (0-10); Urine Color Yellow (Yellow); Urine Specific Gravity 1.013 (1.001-1.035); WBC,Urine 83 /HPF (0-6)
[2019-10-03] MEDS: MELATONIN 3 MG TABLET PO SCH (21:45)
[2019-10-03] MEDS: FLUTICASONE 50 MCG NASAL SPRAY 16 GM BOTTLE BOTH NARES SCH (21:49)
[2019-10-04] MEDS: ALBUTEROL/IPRATROPIUM 3 ML NEB RESP TX SCH ×5 (02:15→19:23)
[2019-10-04] MEDS: methylPREDNISolone SOD SUC 40 MG/1 ML VIAL IV SCH ×3 (04:39→20:27)
[2019-10-04] MEDS: oxyCODONE/ACETAMINOPHEN 5-325 MG TABLET PO PRN ×3 (04:49→18:05)
[2019-10-04 05:49] LABS: Albumin 2.7 G/DL (3.4-5.0); Bilirubin,Total 0.9 MG/DL (0.2-1.0); Calcium 8.8 MG/DL (8.5-10.1); Osmolality,Calculated 273.1 MOS/KG (273-304); Total Protein 6.5 G/DL (6.4-8.3)
[2019-10-04] MEDS: SODIUM CHLORIDE 0.9% 1,000 ML IV SCH ×2 (05:49→19:59)
[2019-10-04] MEDS: LEVOTHYROXINE 200 MCG TABLET PO SCH (05:49)
[2019-10-04 05:57] LABS: Basophils # 0.1 10*3/uL (0.0-0.2); Basophils % 0.6 % (0.0-0.8); Eosinophils # 0.1 10*3/uL (0.0-0.87); Eosinophils % 0.5 % (0.00-10.9); Hematocrit 48.4 VOL% (35.7-47.0); Immature Granulocytes % 1.2 %; Immature Granulocytes Absolute 0.15 #; Lymphocytes # 1.6 10*3/uL (1.4-4.0); Lymphocytes % 12.7 % (21.3-54.2); Mean Corpuscular HGB Conc 30.2 GM/DL (32-36); Mean Corpuscular Volume 94.7 FL (87-102); Mean Platelet Volume 11.3 FL (9.6-12.0); Monocytes % 5.4 % (1.7-12.7); Neutrophils % 79.6 % (38.7-73.9); Platelet Count 276 T/CUMM (130-400); Red Blood Count 5.11 MC/CUMM (3.8-5.5); Red Cell Distribution Width 15.9 % (9.3-17.3); White Blood Count 12.9 T/CUMM (4-12)
[2019-10-04] MEDS: KETOROLAC 15 MG/1 ML VIAL IV SCH ×3 (06:03→23:06)
[2019-10-04 06:05] LABS: Hemoglobin 14.6 GM/DL (12.0-16.0)
[2019-10-04] MEDS: BUDESONIDE 0.25 MG/2 ML NEB RESP TX SCH ×2 (07:20→19:24)
[2019-10-04] MEDS: INSULIN LISPRO 100 UNIT/ML SUBCUT SCH ×4 (10:19→21:53)
[2019-10-04] MEDS: METOPROLOL TARTRATE 25 MG TABLET PO SCH ×2 (10:20→21:55)
[2019-10-04] MEDS: CYANOCOBALAMIN 500 MCG TABLET PO SCH (10:20)
[2019-10-04] MEDS: GABAPENTIN 300 MG CAPSULE PO SCH ×4 (10:20→21:51)
[2019-10-04] MEDS: PANTOPRAZOLE 40 MG TABLET PO SCH (10:20)
[2019-10-04] MEDS: FAMOTIDINE 20 MG TABLET PO SCH (10:20)
[2019-10-04] MEDS: FUROSEMIDE 40 MG/4 ML VIAL IV SCH ×2 (10:21→18:46)
[2019-10-04] MEDS: POTASSIUM CHLORIDE 20 MEQ/15 ML UDCUP PO SCH ×3 (10:21→21:54)
[2019-10-04] MEDS: LACTULOSE 20 GM/30 ML UDCUP PO SCH ×2 (10:21→21:53)
[2019-10-04] MEDS: DOCUSATE SODIUM 100 MG CAPSULE PO SCH ×2 (10:26→21:51)
[2019-10-04] MEDS: LIDOCAINE 5% PATCH TRANSDERM SCH (10:30)
[2019-10-04] MEDS: LEVOFLOXACIN INJ 500 MG in PREMIX 1 EACH IV SCH (10:38)
[2019-10-04] MEDS: diphenhydrAMINE 25 MG/10 ML UDCUP PO SCH (13:30)
[2019-10-04] MEDS: MELATONIN 3 MG TABLET PO SCH (21:51)
[2019-10-04] MEDS: FLUTICASONE 50 MCG NASAL SPRAY 16 GM BOTTLE BOTH NARES SCH (21:53)
[2019-10-05] MEDS: SODIUM CHLORIDE 0.9% 1,000 ML IV SCH ×4 (01:04→23:21)
[2019-10-05] MEDS: ALBUTEROL/IPRATROPIUM 3 ML NEB RESP TX SCH ×3 (03:21→14:58)
[2019-10-05] MEDS: CLORAZEPATE 7.5 MG TABLET PO PRN ×2 (03:39→21:07)
[2019-10-05] MEDS: LEVOTHYROXINE 200 MCG TABLET PO SCH (04:54)
[2019-10-05] MEDS: methylPREDNISolone SOD SUC 40 MG/1 ML VIAL IV SCH ×3 (04:54→21:09)
[2019-10-05 05:47] LABS: Basophils # 0.1 10*3/uL (0.0-0.2); Basophils % 0.6 % (0.0-0.8); Eosinophils # 0.1 10*3/uL (0.0-0.87); Eosinophils % 0.7 % (0.00-10.9); Hematocrit 46.5 VOL% (35.7-47.0); Hemoglobin 14.6 GM/DL (12.0-16.0); Immature Granulocytes % 1.2 %; Immature Granulocytes Absolute 0.13 #; Lymphocytes # 1.7 10*3/uL (1.4-4.0); Lymphocytes % 14.9 % (21.3-54.2); Mean Corpuscular HGB Conc 31.4 GM/DL (32-36); Mean Corpuscular Volume 91.5 FL (87-102); Mean Platelet Volume 11.4 FL (9.6-12.0); Monocytes % 5.8 % (1.7-12.7); Neutrophils % 76.8 % (38.7-73.9); Platelet Count 237 T/CUMM (130-400); Red Blood Count 5.08 MC/CUMM (3.8-5.5); Red Cell Distribution Width 15.8 % (9.3-17.3); White Blood Count 11.3 T/CUMM (4-12)
[2019-10-05 06:10] LABS: Calcium 8.7 MG/DL (8.5-10.1); Osmolality,Calculated 272.1 MOS/KG (273-304)
[2019-10-05] MEDS: KETOROLAC 15 MG/1 ML VIAL IV SCH ×3 (06:39→23:20)
[2019-10-05] MEDS: LIDOCAINE 5% PATCH TRANSDERM SCH (08:54)
[2019-10-05] MEDS: FUROSEMIDE 40 MG/4 ML VIAL IV SCH ×2 (08:55→14:59)
[2019-10-05] MEDS: POTASSIUM CHLORIDE 20 MEQ/15 ML UDCUP PO SCH ×3 (08:55→21:47)
[2019-10-05] MEDS: oxyCODONE/ACETAMINOPHEN 5-325 MG TABLET PO PRN ×2 (08:59→15:35)
[2019-10-05] MEDS: CYANOCOBALAMIN 500 MCG TABLET PO SCH (08:59)
[2019-10-05] MEDS: FAMOTIDINE 20 MG TABLET PO SCH (09:00)
[2019-10-05] MEDS: PANTOPRAZOLE 40 MG TABLET PO SCH (09:00)
[2019-10-05] MEDS: GABAPENTIN 300 MG CAPSULE PO SCH ×4 (09:00→21:46)
[2019-10-05] MEDS: LEVOFLOXACIN INJ 500 MG in PREMIX 1 EACH IV SCH (09:01)
[2019-10-05] MEDS: BUDESONIDE 0.25 MG/2 ML NEB RESP TX SCH (09:59)
[2019-10-05] MEDS: INSULIN LISPRO 100 UNIT/ML SUBCUT SCH ×4 (10:44→21:47)
[2019-10-05] MEDS: LACTULOSE 20 GM/30 ML UDCUP PO SCH ×2 (10:45→21:47)
[2019-10-05] MEDS: DOCUSATE SODIUM 100 MG CAPSULE PO SCH ×2 (10:45→21:44)
[2019-10-05] MEDS: METOPROLOL TARTRATE 25 MG TABLET PO SCH ×2 (10:45→21:47)
[2019-10-05] MEDS: diphenhydrAMINE 25 MG/10 ML UDCUP PO SCH (12:23)
[2019-10-05] MEDS: MELATONIN 3 MG TABLET PO SCH (21:43)
[2019-10-05] MEDS: FLUTICASONE 50 MCG NASAL SPRAY 16 GM BOTTLE BOTH NARES SCH (21:47)
[2019-10-06] MEDS: oxyCODONE/ACETAMINOPHEN 5-325 MG TABLET PO PRN ×3 (03:52→16:50)
[2019-10-06] MEDS: methylPREDNISolone SOD SUC 40 MG/1 ML VIAL IV SCH ×3 (04:56→21:45)
[2019-10-06] MEDS: LEVOTHYROXINE 200 MCG TABLET PO SCH (04:56)
[2019-10-06 05:09] LABS: Calcium 8.1 MG/DL (8.5-10.1); Osmolality,Calculated 276.8 MOS/KG (273-304)
[2019-10-06] MEDS: CLORAZEPATE 7.5 MG TABLET PO PRN ×2 (05:09→12:51)
[2019-10-06] MEDS: KETOROLAC 15 MG/1 ML VIAL IV SCH ×3 (05:54→21:45)
[2019-10-06] MEDS: INSULIN LISPRO 100 UNIT/ML SUBCUT SCH ×4 (09:09→21:50)
[2019-10-06] MEDS: FUROSEMIDE 40 MG/4 ML VIAL IV SCH ×2 (09:19→16:43)
[2019-10-06] MEDS: LEVOFLOXACIN INJ 500 MG in PREMIX 1 EACH IV SCH (09:19)
[2019-10-06] MEDS: POTASSIUM CHLORIDE 20 MEQ/15 ML UDCUP PO SCH ×3 (09:21→21:45)
[2019-10-06] MEDS: DOCUSATE SODIUM 100 MG CAPSULE PO SCH ×2 (09:23→21:44)
[2019-10-06] MEDS: GABAPENTIN 300 MG CAPSULE PO SCH ×4 (09:23→21:44)
[2019-10-06] MEDS: fentaNYL 25 MCG/HR PATCH TRANSDERM SCH (09:24)
[2019-10-06] MEDS: FAMOTIDINE 20 MG TABLET PO SCH (09:24)
[2019-10-06] MEDS: CYANOCOBALAMIN 500 MCG TABLET PO SCH (09:24)
[2019-10-06] MEDS: METOPROLOL TARTRATE 25 MG TABLET PO SCH ×2 (09:25→21:50)
[2019-10-06] MEDS: PANTOPRAZOLE 40 MG TABLET PO SCH (09:25)
[2019-10-06] MEDS: LACTULOSE 20 GM/30 ML UDCUP PO SCH ×2 (09:25→21:45)
[2019-10-06] MEDS: LIDOCAINE 5% PATCH TRANSDERM SCH (09:25)
[2019-10-06] MEDS: diphenhydrAMINE 25 MG/10 ML UDCUP PO SCH (12:51)
[2019-10-06] MEDS: SODIUM CHLORIDE 0.9% 1,000 ML IV SCH (18:23)
[2019-10-06] MEDS: MELATONIN 3 MG TABLET PO SCH (21:44)
[2019-10-06] MEDS: FLUTICASONE 50 MCG NASAL SPRAY 16 GM BOTTLE BOTH NARES SCH (21:45)
[2019-10-06] MEDS: IPRATROPIUM 500 MCG/2.5 ML NEB RESP TX SCH (23:32)
[2019-10-07] MEDS: KETOROLAC 15 MG/1 ML VIAL IV SCH ×2 (05:17→14:07)
[2019-10-07] MEDS: LEVOTHYROXINE 200 MCG TABLET PO SCH (05:18)
[2019-10-07] MEDS: methylPREDNISolone SOD SUC 40 MG/1 ML VIAL IV SCH ×3 (05:18→20:50)
[2019-10-07 05:35] LABS: Basophils # 0.1 10*3/uL (0.0-0.2); Basophils % 0.7 % (0.0-0.8); Eosinophils # 0.2 10*3/uL (0.0-0.87); Eosinophils % 1.6 % (0.00-10.9); Hematocrit 45.8 VOL% (35.7-47.0); Hemoglobin 14.1 GM/DL (12.0-16.0); Immature Granulocytes % 1.1 %; Immature Granulocytes Absolute 0.11 #; Lymphocytes # 1.8 10*3/uL (1.4-4.0); Lymphocytes % 17.6 % (21.3-54.2); Mean Corpuscular HGB Conc 30.8 GM/DL (32-36); Mean Corpuscular Volume 93.9 FL (87-102); Mean Platelet Volume 11.2 FL (9.6-12.0); Monocytes % 6.2 % (1.7-12.7); Neutrophils % 72.8 % (38.7-73.9); Platelet Count 213 T/CUMM (130-400); Red Blood Count 4.88 MC/CUMM (3.8-5.5); Red Cell Distribution Width 15.8 % (9.3-17.3); White Blood Count 10.4 T/CUMM (4-12)
[2019-10-07 06:08] LABS: Albumin 2.6 G/DL (3.4-5.0); Bilirubin,Total 0.6 MG/DL (0.2-1.0); Calcium 8.5 MG/DL (8.5-10.1); Osmolality,Calculated 279.7 MOS/KG (273-304); Total Protein 6.1 G/DL (6.4-8.3)
[2019-10-07] MEDS: IPRATROPIUM 500 MCG/2.5 ML NEB RESP TX SCH ×3 (07:00→23:50)
[2019-10-07] MEDS: INSULIN LISPRO 100 UNIT/ML SUBCUT SCH ×4 (07:26→20:56)
[2019-10-07] MEDS: FUROSEMIDE 40 MG/4 ML VIAL IV SCH ×2 (10:59→16:21)
[2019-10-07] MEDS: LIDOCAINE 5% PATCH TRANSDERM SCH (11:01)
[2019-10-07] MEDS: LACTULOSE 20 GM/30 ML UDCUP PO SCH ×3 (11:02→20:52)
[2019-10-07] MEDS: POTASSIUM CHLORIDE 20 MEQ/15 ML UDCUP PO SCH ×3 (11:02→20:52)
[2019-10-07] MEDS: DOCUSATE SODIUM 100 MG CAPSULE PO SCH ×2 (11:03→20:52)
[2019-10-07] MEDS: CYANOCOBALAMIN 500 MCG TABLET PO SCH (11:03)
[2019-10-07] MEDS: FAMOTIDINE 20 MG TABLET PO SCH (11:04)
[2019-10-07] MEDS: traMADol 50 MG TABLET PO SCH ×2 (11:04→20:51)
[2019-10-07] MEDS: GABAPENTIN 300 MG CAPSULE PO SCH ×3 (11:05→19:02)
[2019-10-07] MEDS: LEVOFLOXACIN INJ 500 MG in PREMIX 1 EACH IV SCH (11:05)
[2019-10-07] MEDS: PANTOPRAZOLE 40 MG TABLET PO SCH (11:05)
[2019-10-07] MEDS: METOPROLOL TARTRATE 25 MG TABLET PO SCH (11:06)
[2019-10-07] MEDS: diphenhydrAMINE 25 MG/10 ML UDCUP PO SCH (14:44)
[2019-10-07] MEDS: SODIUM CHLORIDE 0.9% 1,000 ML IV SCH (16:19)
[2019-10-07] MEDS: oxyCODONE/ACETAMINOPHEN 5-325 MG TABLET PO PRN ×2 (16:21→22:41)
[2019-10-07] MEDS ORDERED: METOPROLOL TARTRATE 25 MG TABLET PO PRN (19:05)
[2019-10-07] MEDS ORDERED: SODIUM CHLORIDE 0.9% 500 ML IV ONE (19:06)
[2019-10-07] MEDS: MELATONIN 3 MG TABLET PO SCH (20:51)
[2019-10-07] MEDS: FLUTICASONE 50 MCG NASAL SPRAY 16 GM BOTTLE BOTH NARES SCH (20:52)
[2019-10-08] MEDS: SODIUM CHLORIDE 0.9% 1,000 ML IV SCH ×2 (02:16→18:25)
[2019-10-08] MEDS: LEVOTHYROXINE 200 MCG TABLET PO SCH (05:30)
[2019-10-08] MEDS: methylPREDNISolone SOD SUC 40 MG/1 ML VIAL IV SCH ×3 (05:30→20:52)
[2019-10-08 05:57] LABS: Basophils # 0.1 10*3/uL (0.0-0.2); Basophils % 0.7 % (0.0-0.8); Eosinophils # 0.1 10*3/uL (0.0-0.87); Eosinophils % 0.6 % (0.00-10.9); Hemoglobin 14.5 GM/DL (12.0-16.0); Immature Granulocytes % 1.1 %; Immature Granulocytes Absolute 0.14 #; Lymphocytes # 1.3 10*3/uL (1.4-4.0); Lymphocytes % 10.5 % (21.3-54.2); Mean Corpuscular HGB Conc 30.9 GM/DL (32-36); Mean Corpuscular Volume 92.9 FL (87-102); Mean Platelet Volume 11.6 FL (9.6-12.0); Monocytes % 3.8 % (1.7-12.7); Neutrophils % 83.3 % (38.7-73.9); Platelet Count 231 T/CUMM (130-400); Red Blood Count 5.06 MC/CUMM (3.8-5.5); Red Cell Distribution Width 15.5 % (9.3-17.3); White Blood Count 12.6 T/CUMM (4-12)
[2019-10-08 07:04] LABS: Calcium 8.3 MG/DL (8.5-10.1); Osmolality,Calculated 275.8 MOS/KG (273-304)
[2019-10-08] MEDS: IPRATROPIUM 500 MCG/2.5 ML NEB RESP TX SCH ×2 (07:39→14:17)
[2019-10-08] MEDS: INSULIN LISPRO 100 UNIT/ML SUBCUT SCH ×4 (08:33→20:56)
[2019-10-08] MEDS: LEVOFLOXACIN INJ 500 MG in PREMIX 1 EACH IV SCH (09:17)
[2019-10-08] MEDS: CYANOCOBALAMIN 500 MCG TABLET PO SCH (09:18)
[2019-10-08] MEDS: PANTOPRAZOLE 40 MG TABLET PO SCH (09:18)
[2019-10-08] MEDS: FUROSEMIDE 40 MG/4 ML VIAL IV SCH ×2 (09:18→15:41)
[2019-10-08] MEDS: POTASSIUM CHLORIDE 20 MEQ/15 ML UDCUP PO SCH ×3 (09:18→20:57)
[2019-10-08] MEDS: traMADol 50 MG TABLET PO SCH ×2 (09:18→20:54)
[2019-10-08] MEDS: FAMOTIDINE 20 MG TABLET PO SCH (09:18)
[2019-10-08] MEDS: DOCUSATE SODIUM 100 MG CAPSULE PO SCH ×2 (09:18→20:54)
[2019-10-08] MEDS: LACTULOSE 20 GM/30 ML UDCUP PO SCH ×2 (09:20→20:56)
[2019-10-08] MEDS: oxyCODONE/ACETAMINOPHEN 5-325 MG TABLET PO PRN ×3 (09:34→22:06)
[2019-10-08] MEDS: LIDOCAINE 5% PATCH TRANSDERM SCH (09:46)
[2019-10-08] MEDS: diphenhydrAMINE 25 MG/10 ML UDCUP PO SCH (12:06)
[2019-10-08] MEDS: MELATONIN 3 MG TABLET PO SCH (20:54)
[2019-10-08] MEDS: FLUTICASONE 50 MCG NASAL SPRAY 16 GM BOTTLE BOTH NARES SCH (20:56)
[2019-10-09] MEDS: IPRATROPIUM 500 MCG/2.5 ML NEB RESP TX SCH ×2 (00:19→07:29)
[2019-10-09] MEDS: SODIUM CHLORIDE 0.9% 1,000 ML IV SCH (01:48)
[2019-10-09] MEDS: methylPREDNISolone SOD SUC 40 MG/1 ML VIAL IV SCH (03:01)
[2019-10-09] MEDS: CLORAZEPATE 7.5 MG TABLET PO PRN (03:02)
[2019-10-09] MEDS: LEVOTHYROXINE 200 MCG TABLET PO SCH (06:00)
[2019-10-09] MEDS: INSULIN LISPRO 100 UNIT/ML SUBCUT SCH (07:55)
[2019-10-09] MEDS: fentaNYL 25 MCG/HR PATCH TRANSDERM SCH (08:40)
[2019-10-09] MEDS: DOCUSATE SODIUM 100 MG CAPSULE PO SCH (08:41)
[2019-10-09] MEDS: PANTOPRAZOLE 40 MG TABLET PO SCH (08:41)
[2019-10-09] MEDS: CYANOCOBALAMIN 500 MCG TABLET PO SCH (08:41)
[2019-10-09] MEDS: FAMOTIDINE 20 MG TABLET PO SCH (08:42)
[2019-10-09] MEDS: traMADol 50 MG TABLET PO SCH (08:42)
[2019-10-09] MEDS: LACTULOSE 20 GM/30 ML UDCUP PO SCH (08:43)
[2019-10-09] MEDS: LEVOFLOXACIN INJ 500 MG in PREMIX 1 EACH IV SCH (08:43)
[2019-10-09] MEDS: POTASSIUM CHLORIDE 20 MEQ/15 ML UDCUP PO SCH (08:43)
[2019-10-09] MEDS: LIDOCAINE 5% PATCH TRANSDERM SCH (08:44)
[2019-10-09] MEDS: FUROSEMIDE 40 MG/4 ML VIAL IV SCH (08:44)
[2019-10-09] MEDS: oxyCODONE/ACETAMINOPHEN 5-325 MG TABLET PO PRN (08:44)
[2019-10-09 09:44] VITALS: BP 116/71
== END 2019-10-09 11:23 | DRG 193 ==
LOC: N.ED 09:27 → N.EDINP 11:50 → N.TELEN 14:32 → N.4E 10-07 08:17
PROVIDERS: ADMIT Internal Medicine; ATTEND Internal Medicine